=== PATIENT | female | born 1950 | race Caucasian/White ===

== ENCOUNTER → 2017-02-15 | Outpatient (CLI) | payer MEDICARE ==
--- NOTE | 2017-02-18 09:55 | MM ---
Reason for exam: screening (asymptomatic). Baseline mammogram. History: Patient is postmenopausal. Excisional biopsy of the right breast. Physical Findings: Nurse did not find any significant physical abnormalities on exam. MG Screening Mammo w CAD Bilateral CC and MLO view(s) were taken. No prior studies available for comparison. The breast tissue is heterogeneously dense. This may lower the sensitivity of mammography. A few asymmetric densities on the left breast probably represent prominent islands of fibroglandular tissue. As no priors are available for comparison, a 6 month follow up is recommended. These results were verbally communicated with the patient and result sheet given to the patient on 02/15/17. ASSESSMENT: Probably benign, BI-RAD 3 RECOMMENDATION: Follow-up diagnostic mammogram of the left breast in 6 months.
== END ==
LOC: RADMAMWWP 13:37
PROVIDERS: ATTEND Family Medicine
DX: Z12.31 Encounter for screening mammogram for malignant neoplasm of breast (principal)

== ENCOUNTER → 2018-06-27 | Outpatient (CLI) | payer MEDICARE ==
--- NOTE | 2018-06-27 11:50 | XR ---
EXAMINATION TYPE: XR foot complete LT DATE OF EXAM: Pain COMPARISON: NONE HISTORY: Pain TECHNIQUE: Three views are submitted. FINDINGS: The osseous structures are intact. There is no acute fracture or dislocation. Arthropathy of the f irst MTP joint. Tiny bony density along the margin of the cuboid bone. Large plantar calcaneal spur.. IMPRESSION: 1. Tiny bony density along the lateral margin of the cuboid could be related to a tiny avulsion fract ure correlate with point tenderness
== END | disposition home or self-care (01) ==
LOC: RADXRYALE 11:00
PROVIDERS: ATTEND Family Medicine
DX: M85.872 Other specified disorders of bone density and structure, left ankle and foot (principal)

== ENCOUNTER → 2018-08-18 | Outpatient (CLI) | payer MEDICARE ==
--- NOTE | 2018-08-18 16:45 | XR ---
EXAMINATION TYPE: XR abdomen 2V DATE OF EXAM: 08/18/2018 COMPARISON: NONE HISTORY: Pain TECHNIQUE: 3 views FINDINGS: Supine and upright views were obtained. Bowel gas pattern is normal. There is no sign of in testinal obstruction or pneumoperitoneum. Fecal pattern is normal. There are no pathologic calcificat ions over the kidneys. Lung bases are clear. There is no sign of a mass. IMPRESSION: Nonacute abdomen.
== END | disposition home or self-care (01) ==
LOC: RADXRYALE 16:12
PROVIDERS: ATTEND Physician Assistant Medical
DX: R10.9 Unspecified abdominal pain (principal); R19.7 Diarrhea, unspecified
CPT/HCPCS: 74019

== ENCOUNTER 2018-12-30 09:43 | Observation (INO) | payer MEDICARE ==
[2018-12-30] MEDS ORDERED: ASPIRIN 81 MG PO STA (10:11)
[2018-12-30] MEDS ORDERED: NITROGLYCERIN OINT 1 INCH/GM PACKET TOPICAL STA (10:11)
--- NOTE | 2018-12-30 10:13 | ED ---
General Adult HPI - General Chief complaint: Chest Pain Stated complaint: chest pain Time Seen by Provider: 12/30/18 09:45 Source: patient, RN notes reviewed Mode of arrival: wheelchair Limitations: no limitations - History of Present Illness Initial comments: This is a 68-year-old female presents emergency Complaining of chest pain and difficulty breathing after stress test. Patient states she had a stress test because she's been experiencing intermittent chest pain or shortness of breath with exertion. Patient states after the stress test today she had central chest pain did last for a long but she was also short of breath. Patient states they sat her down after the stress test but she continued to have chest pain. Patient denies any chest pain currently. Patient denies any lightheadedness dizziness or near syncopal episode. Patient denies any palpations. Patient denies any abdominal pain patient denies nausea vomiting diarrhea. Patient denies any swelling to the legs or calf tenderness. - Related Data Allergies Allergy/AdvReac Type Severity Reaction Status Date / Time Penicillins Allergy Hallucinati Verified 12/30/18 09:51 ons propoxyphene Allergy Unknown Verified 12/30/18 09:51 [From [facility]] Review of Systems ROS Statement: Those systems with pertinent positive or pertinent negative responses have been documented in the HPI. ROS Other: All systems not noted in ROS Statement are negative. Past Medical History Past Medical History: Chest Pain / Angina, Hyperlipidemia, Hypertension History of Any Multi-Drug Resistant Organisms: None Reported Past Surgical History: Cholecystectomy, Hysterectomy Additional Past Surgical History / Comment(s): 2 right knee sx, Past Psychological History: Anxiety, Depression Smoking Status: Former smoker Past Alcohol Use History: None Reported Past Drug Use History: None Reported General Exam - General Exam Comments Initial Comments: GENERAL: Patient is well-developed and well-nourished. Patient is nontoxic and well- hydrated and is in mild distress. ENT: Neck is soft and supple. No significant lymphadenopathy is noted. Oropharynx is clear. Moist mucous membranes. Neck has full range of motion without eliciting any pain. EYES: The sclera were anicteric and conjunctiva were pink and moist. Extraocular movements were intact and pupils were equal round and reactive to light. Eyelids were unremarkable. PULMONARY: Unlabored respirations. Good breath sounds bilaterally. Patient's extremities. CARDIOVASCULAR: There is a regular rate and rhythm without any murmurs gallops or rubs. ABDOMEN: Soft and nontender with normal bowel sounds. No palpable organomegaly was noted. There is no palpable pulsatile mass. SKIN: Skin is clear with no lesions or rashes and otherwise unremarkable. NEUROLOGIC: Patient is alert and oriented x3. Cranial nerves II through XII are grossly intact. Motor and sensory are also intact. Normal speech, volume and content. Symmetrical smile. MUSCULOSKELETAL: Normal extremities with adequate strength and full range of motion. No lower extremity swelling or edema. No calf tenderness. LYMPHATICS: No significant lymphadenopathy is noted PSYCHIATRIC: Normal psychiatric evaluation. Normal interpersonal interactions appears functionally intact in deals appropriately with others. No signs of depression. No signs of anxiety. Limitations: no limitations Course Vital Signs 12/30/18 09:44 Temperature 98.2 F Pulse Rate 96 Respiratory 22 Rate Blood Pressure 129/87 O2 Sat by Pulse 94 L Oximetry Medical Decision Making - Medical Decision Making EKG shows normal sinus rhythm at 90 bpm CA interval is 128 QRS is 60 QT interval 326 QTC is 398. Patient's EKG shows no ST segment elevation or depression or T wave abnormalities are noted. Chest x-ray shows no acute abnormality. Patient was chest pain-free at this time. I spoke with Dr. Cervantes he agreed to admit the patient admitted the patient wrote admitting orders. I started the patient on heparin and continue the heparin on the floor as well as aspirin and Nitropaste. I consult cardiology I wrote admitting orders. - Lab Data Result diagrams: 12/30/18 10:17 12/30/18 10:17 Lab Results 12/30/18 12/30/18 12/30/18 Range/Units 10:17 10:17 10:17 WBC 6.7 (3.8-10.6) k/uL RBC 5.27 (3.80-5.40) m/uL Hgb 15.8 (11.4-16.0) gm/dL Hct 47.7 H (34.0-46.0) % MCV 90.6 (80.0-100.0) fL MCH 30.0 (25.0-35.0) pg MCHC 33.1 (31.0-37.0) g/dL RDW 12.8 (11.5-15.5) % Plt Count 393 (150-450) k/uL Neutrophils % 57 % Lymphocytes % 25 % Monocytes % 6 % Eosinophils % 7 % Basophils % 1 % Neutrophils # 3.8 (1.3-7.7) k/uL Lymphocytes # 1.7 (1.0-4.8) k/uL Monocytes # 0.4 (0-1.0) k/uL Eosinophils # 0.5 (0-0.7) k/uL Basophils # 0.1 (0-0.2) k/uL PT (9.0-12.0) sec INR (<1.2) APTT (22.0-30.0) sec Sodium 137 (137-145) mmol/L Potassium 5.3 H (3.5-5.1) mmol/L Chloride 103 (98-107) mmol/L Carbon Dioxide 26 (22-30) mmol/L Anion Gap 8 mmol/L BUN 20 H (7-17) mg/dL Creatinine 0.85 (0.52-1.04) mg/dL Est GFR (CKD-EPI)AfAm 82 (>60 ml/min/1.73 sqM) Est GFR (CKD-EPI)NonAf 71 (>60 ml/min/1.73 sqM) Glucose 112 H (74-99) mg/dL Calcium 10.3 H (8.4-10.2) mg/dL Magnesium 2.0 (1.6-2.3) mg/dL Total Bilirubin 0.5 (0.2-1.3) mg/dL AST 32 (14-36) U/L ALT 57 H (9-52) U/L Alkaline Phosphatase 78 (38-126) U/L Troponin I (0.000-0.034) ng/mL NT-Pro-B Natriuret Pep 29 pg/mL Total Protein 7.5 (6.3-8.2) g/dL Albumin 4.8 (3.5-5.0) g/dL 12/30/18 12/30/18 Range/Units 10:17 10:17 WBC (3.8-10.6) k/uL RBC (3.80-5.40) m/uL Hgb (11.4-16.0) gm/dL Hct (34.0-46.0) % MCV (80.0-100.0) fL MCH (25.0-35.0) pg MCHC (31.0-37.0) g/dL RDW (11.5-15.5) % Plt Count (150-450) k/uL Neutrophils % % Lymphocytes % % Monocytes % % Eosinophils % % Basophils % % Neutrophils # (1.3-7.7) k/uL Lymphocytes # (1.0-4.8) k/uL Monocytes # (0-1.0) k/uL Eosinophils # (0-0.7) k/uL Basophils # (0-0.2) k/uL PT 9.4 (9.0-12.0) sec INR 0.8 (<1.2) APTT 26.4 (22.0-30.0) sec Sodium (137-145) mmol/L Potassium (3.5-5.1) mmol/L Chloride (98-107) mmol/L Carbon Dioxide (22-30) mmol/L Anion Gap mmol/L BUN (7-17) mg/dL Creatinine (0.52-1.04) mg/dL Est GFR (CKD-EPI)AfAm (>60 ml/min/1.73 sqM) Est GFR (CKD-EPI)NonAf (>60 ml/min/1.73 sqM) Glucose (74-99) mg/dL Calcium (8.4-10.2) mg/dL Magnesium (1.6-2.3) mg/dL Total Bilirubin (0.2-1.3) mg/dL AST (14-36) U/L ALT (9-52) U/L Alkaline Phosphatase (38-126) U/L Troponin I <0.012 (0.000-0.034) ng/mL NT-Pro-B Natriuret Pep pg/mL Total Protein (6.3-8.2) g/dL Albumin (3.5-5.0) g/dL Critical Care Time Critical Care Time: Yes Total Critical Care Time: 35 Disposition Clinical Impression: Unstable angina pectoris Disposition: ADMITTED IP TO THIS HOSP Referrals: Kvng Aquion DO [Primary Care Provider] - 1-2 days Time of Disposition: 11:33
[2018-12-30 10:32] LABS: Basophils # (A) 0.1 k/uL (0-0.2); Basophils % (A) 1 %; Eosinophils # (A) 0.5 k/uL (0-0.7); Eosinophils % (A) 7 %; HCT 47.7 % (34.0-46.0); HGB 15.8 gm/dL (11.4-16.0); Lymphocytes # (A) 1.7 k/uL (1.0-4.8); Lymphocytes % (A) 25 %; MCHC 33.1 g/dL (31.0-37.0); MCV 90.6 fL (80.0-100.0); Monocytes # (A) 0.4 k/uL (0-1.0); Monocytes % (A) 6 %; Neutrophils # (A) 3.8 k/uL (1.3-7.7); Neutrophils % (A) 57 %; Platelet Count 393 k/uL (150-450); RBC 5.27 m/uL (3.80-5.40); RDW 12.8 % (11.5-15.5); WBC 6.7 k/uL (3.8-10.6)
[2018-12-30 10:42] LABS: Albumin 4.8 g/dL (3.5-5.0); Calcium 10.3 mg/dL (8.4-10.2); Potassium 5.3 mmol/L (3.5-5.1); Total Bilirubin 0.5 mg/dL (0.2-1.3); Total Protein 7.5 g/dL (6.3-8.2)
--- NOTE | 2018-12-30 10:50 | XR ---
EXAMINATION TYPE: XR chest 2V DATE OF EXAM: 12/30/2018 COMPARISON: NONE HISTORY: History of asthma with chest pain and shortness of breath with exertion. TECHNIQUE: Frontal and lateral views of the chest are obtained. FINDINGS: Underlying emphysematous changes felt present on lateral view with increased retrosternal a irspace and flattening of hemidiaphragms There is no focal air space opacity, pleural effusion, or pn eumothorax seen. The cardiac silhouette size is within normal limits. The osseous structures are s omewhat demineralized. Horizontal subcutaneous cecilio overlie the epigastric region anteriorly. IMPRESSION: Suspect chronic emphysematous change without acute pulmonary process.
[2018-12-30 10:56] LABS: INR 0.8 (<1.2)
[2018-12-30 10:57] LABS: Partial Thromboplastin Time 26.4 sec (22.0-30.0); Prothrombin Time 9.4 sec (9.0-12.0)
[2018-12-30] MEDS ORDERED: HEPARIN SODIUM,PORCINE 5,000 UNIT/ML 1 ML VIAL IV ONE (11:34)
[2018-12-30] MEDS ORDERED: NITROGLYCERIN SL TABS 0.4 MG TAB SUBLINGUAL PRN (11:37)
[2018-12-30] MEDS ORDERED: IPRATROPIUM-ALBUTEROL 3 ML NEB INHALATION STA (11:40)
[2018-12-30] MEDS ORDERED: HEPARIN SOD,PORK IN 0.45% NACL 25,000 UNIT in 0.45% NACL 1 250ML.BAG IV SCH (11:45)
[2018-12-30 12:16] VITALS: BMI 31.5
[2018-12-30 13:27] VITALS: RESP 18; TEMP 98.3
[2018-12-30] MEDS ORDERED: DICYCLOMINE 10 MG CAP PO PRN (13:43)
[2018-12-30] MEDS ORDERED: clonazePAM 0.5 MG TAB PO PRN (13:43)
--- NOTE | 2018-12-30 14:05 | P.CRDCN ---
History of Present Illness History of present illness: This is a pleaseant 68 year old female past medical history significant for dyslipidemia, asthma and former nicotine dependence. She denies history of coronary artery disease and has never followed with a maintenance plumber for any reason. We have been asked to see her in consultation for chest pain. She initially presented to the hospital this morning for an outpatient stress test. She walked on the treadmill for 4 minutes achieving her target heart rate of 132 bpm. While walking she became dyspneic, nauseated and started wheezing. The stress test revealed no evidence of stress induced ischemia. After the test while being escorted to her car by staff she started feeling acutely dizzy with persistent shortness of breath. She stopped to rest and this seemed to improve. However, once she started walking she again started feeling dizzy but this time she states her chest started feeling tight and like it was caving in. It was decided she would go to the ED for evaluation. Upon arrival there she was given a breathing treatment and started feeling relief of her chest tightness and wheezing. However she continued to feel nauseated and dizzy. She states she has been having diarrhea off an on since October with intermittent nausea and abdominal discomfort that is currently being worked up by her PCP. EKG reveals sinus mechanism with poor R-wave progression. No acute ST or T-wave abnormalities. Chest xray shows emphysematous changes with no acute process or overt heart f ailure. Laboratory data reviewed, WBC 6.7, hgb 15.8, plt 393, sodium 137, potassium 5.3, creatinine 0.85, ALT 57, magnesium 2.0, cardiac enzymes negative x1, NTproBNP 29. Current cardiac medications include pravastatin 20 mg daily. At the time of my exam: CONSTITUTIONAL: Denies fever. Denies chills. EYES: Denies blurred vision. Denies vision changes. Denies eye pain. EARS, NOSE, MOUTH & THROAT: Denies headache. Denies sore throat. Denies ear pain. CARDIOVASCULAR: Denies chest pain. Denies shortness of breath. Denies orthopnea. Denies PND. Denies palpitations. RESPIRATORY: Denies cough. GASTROINTESTINAL: Denies abdominal pain. Denies diarrhea. Denies constipation. Denies nausea. Denies vomiting. MUSCULOSKELETAL: Denies myalgias. INTEGUMENTARY: Denies pruitis. Denies rash. NEUROLOGIC: Denies numbness. Denies tingling. Denies weakness. PSYCHIATRIC: Denies anxiety. Denies depression. ENDOCRINE: Denies fatigue. Denies weight change. Denies polydipsia. Denies polyurina. GENITOURINARY: Denies burning, hematuria or urgency with micturation. HEMATOLOGIC: Denies history of anemia. Denies bleeding. Blood pressure 129/87 heart rate 96 afebrile maintaining oxygen saturation on room air GENERAL: This is a 68-year-old female in no apparent distress at the time of my examination. HEENT: Head is atraumatic, normocephalic. Pupils are equal, round. Sclerae anicteric. Conjunctivae are clear. Mucous membranes of the mouth are moist. Neck is supple. There is no jugular venous distention. No carotid bruit is heard. LUNGS: Faint expiratory wheezes noted in the bronchial region, no rales or rhonchi. No chest wall tenderness is noted on palpation or with deep breathing. HEART: Regular rate and rhythm with faint systolic ejection type murmur at the base, no rub or gallops. S1 and S2 heard. ABDOMEN: Soft, nontender. Bowel sounds are heard. No organomegaly noted. EXTREMITIES: No evidence of peripheral edema and no calf tenderness noted. VASCULAR: Radial and dorsalis pedis pulses palpated, no evidence of clubbing. NEUROLOGIC: Patient is awake, alert and oriented x3. ASSESSMENT Chest pain, atypical for angina associated with exertional shortness of breath and wheezing after stress test. Suspect may be related to over exertion and underlying COPD Asthma Dyslipidemia Significant history of long-term nicotine dependence, quit 2 months ago PLAN The patient may eat lunch. Continue to obtain serial cardiac enzymes to rule out an acute coronary event. Obtain 2-D echocardiogram and Doppler study to assess cardiac structure and function. She underwent a stress test earlier today that was negative for stress induced ischemia. Increase activity. Once an acute event has been ruled out she may be able to be discharged home if she remains hemodynamically stable. Follow up in the office with Dr. Laguna in 2 weeks. Thank you kindly for this consultation. Nurse Practitioner note has been reviewed, I agree with a documented findings and plan of care. Patient was seen and examined. Past Medical History Past Medical History: Asthma, Chest Pain / Angina, Hyperlipidemia, Hypertension, Pneumonia Additional Past Medical History / Comment(s): Pt states she has been having problems with severe diarrhea since October 2018 and her PCP is sending her for a cat scan which is scheduled to be done soon, past colon polyps, recent cologard done and was negative, small hemorroid, arhtritis in back and hands. History of Any Multi-Drug Resistant Organisms: None Reported Past Surgical History: Cholecystectomy, Hysterectomy Additional Past Surgical History / Comment(s): 2 right knee sx-ACL repair and meniscus surgery, colonoscopy 15-20 yrs ago. Past Anesthesia/Blood Transfusion Reactions: No Reported Reaction Smoking Status: Former smoker - Past Family History Mother Additional Family Medical History / Comment(s): Mother was an alcoholic Father Family Medical History: Congestive Heart Failure (CHF), Myocardial Infarction (SC) Additional Family Medical History / Comment(s): Father had a massive SC at the age of 78yrs. He of CHF at the age of 91 yrs. Medications and Allergies Home Medications Medication Instructions Recorded Confirmed Type Albuterol Nebulized [Ventolin 2.5 mg INHALATION RT-Q4H 12/30/18 12/30/18 History Nebulized] Albuterol Sulfate [Proair Hfa] 2 puff INHALATION RT-Q4H 12/30/18 12/30/18 History Celecoxib [CeleBREX] 200 mg PO DAILY 12/30/18 12/30/18 History Cholecalciferol [Vitamin D3] 1,000 unit PO DAILY 12/30/18 12/30/18 History Diclofenac Sodium Gel [Voltaren 1 gm TOPICAL QID 12/30/18 12/30/18 History Gel] Dicyclomine HCl 10 - 20 mg PO TID 12/30/18 12/30/18 History Ipratropium Nebulized [Atrovent 0.5 mg INHALATION RT-Q4H 12/30/18 12/30/18 History Nebulized 0.2 MG/ML] L.acidoph,Paracasei, B.lactis 1 cap PO DAILY 12/30/18 12/30/18 History [Probiotic] Losartan Potassium [Cozaar] 25 mg PO DAILY 12/30/18 12/30/18 History Montelukast Sodium [Singulair] 10 mg PO HS 12/30/18 12/30/18 History Pravastatin Sodium [Pravachol] 20 mg PO HS 12/30/18 12/30/18 History Vitamin B Complex 1 cap PO DAILY 12/30/18 12/30/18 History clonazePAM [KlonoPIN] 0.5 mg PO BID PRN 12/30/18 12/30/18 History tiZANidine [Zanaflex] 8 mg PO HS 12/30/18 12/30/18 History Allergies Allergy/AdvReac Type Severity Reaction Status Date / Time morphine Allergy Rash/Hives Verified 12/30/18 13:24 Penicillins Allergy Hallucinati Verified 12/30/18 12:03 ons propoxyphene Allergy Unknown Verified 12/30/18 12:03 [From [facility]] Physical Exam Vitals: Vital Signs Temp Pulse Pulse Resp BP BP Pulse Ox 12/30/18 13:28 102 H 18 12/30/18 12:50 98.3 F 102 H 18 121/77 92 L 12/30/18 12:30 98 20 108/83 95 12/30/18 12:13 100 12/30/18 12:01 98 12/30/18 12:00 101 H 14 126/75 95 12/30/18 11:30 98 15 135/87 95 12/30/18 11:00 89 15 138/83 94 L 12/30/18 10:30 84 18 139/86 96 12/30/18 10:00 86 18 151/88 96 12/30/18 09:57 151/88 95 12/30/18 09:44 98.2 F 96 22 129/87 94 L Intake and Output 12/29/18 12/30/18 12/30/18 22:59 06:59 14:59 Other: Voiding Method Toilet Weight 75.75 kg Results 12/30/18 10:17 12/30/18 10:17 Cardiac Enzymes 12/30/18 12/30/18 Range/Units 10:17 10:17 AST 32 (14-36) U/L Troponin I <0.012 (0.000-0.034) ng/mL Coagulation 12/30/18 Range/Units 10:17 PT 9.4 (9.0-12.0) sec APTT 26.4 (22.0-30.0) sec CBC 12/30/18 Range/Units 10:17 WBC 6.7 (3.8-10.6) k/uL RBC 5.27 (3.80-5.40) m/uL Hgb 15.8 (11.4-16.0) gm/dL Hct 47.7 H (34.0-46.0) % Plt Count 393 (150-450) k/uL Comprehensive Metabolic Panel 12/30/18 Range/Units 10:17 Sodium 137 (137-145) mmol/L Potassium 5.3 H (3.5-5.1) mmol/L Chloride 103 (98-107) mmol/L Carbon Dioxide 26 (22-30) mmol/L BUN 20 H (7-17) mg/dL Creatinine 0.85 (0.52-1.04) mg/dL Glucose 112 H (74-99) mg/dL Calcium 10.3 H (8.4-10.2) mg/dL AST 32 (14-36) U/L ALT 57 H (9-52) U/L Alkaline Phosphatase 78 (38-126) U/L Total Protein 7.5 (6.3-8.2) g/dL Albumin 4.8 (3.5-5.0) g/dL Current Medications Generic Name Dose Route Start Last Admin Trade Name Freq PRN Reason Stop Dose Admin Aspirin 325 mg 12/31/18 09:00 Aspirin PO DAILY [facility] Heparin Sodium/Sodium Chloride 250 mls @ 9.09 mls/hr 12/30/18 11:45 12/30/18 12:27 25,000 unit/ Sodium Chloride IV 12 units/kg/hr .Q24H HOLDEN 9.09 mls/hr Administration Protocol 12 UNITS/KG/HR Nitroglycerin 1 inch 12/30/18 18:00 Nitro-Bid Oint TOPICAL Q6HR [facility] Nitroglycerin 0.4 mg 12/30/18 11:37 Nitrostat SUBLINGUAL Q5M PRN Chest Pain Intake and Output 12/29/18 12/30/18 12/30/18 22:59 06:59 14:59 Other: Voiding Method Toilet Weight 75.75 kg Patient Weight 12/31/18 06:59 Weight 75.75 kg 12/30/18 10:17 12/30/18 10:17
[2018-12-30 14:27] LABS: Cholesterol 250 mg/dL (<200); HDL Cholesterol 92 mg/dL (40-60); LDL Cholesterol,Calculated 127 mg/dL (0-99); Triglycerides 153 mg/dL (<150)
--- NOTE | 2018-12-30 15:03 | P.DS ---
Providers Date of admission: 12/30/18 11:38 Attending physician: Ceasar Cervantes Consults: 12/30/18 11:37 Consult Physician Urgent Consulting Provider: [facility] Consult Reason/Comments: Unstable angina Do you want consulting provider notified?: Yes Primary care physician: Kvng Aquino [facility] Course: Please refer to my HPI Plan - Discharge Summary Discharge Rx Participant: No New Discharge Prescriptions: New Atorvastatin [Lipitor] 20 mg PO DAILY #30 tablet Discontinued Losartan Potassium [Cozaar] 25 mg PO DAILY Diclofenac Sodium Gel [Voltaren Gel] 1 gm TOPICAL QID No Action Cholecalciferol [Vitamin D3] 1,000 unit PO DAILY clonazePAM [KlonoPIN] 0.5 mg PO BID PRN PRN Reason: Anxiety Vitamin B Complex 1 cap PO DAILY L.acidoph,Paracasei, B.lactis [Probiotic] 1 cap PO DAILY tiZANidine [Zanaflex] 8 mg PO HS Pravastatin Sodium [Pravachol] 20 mg PO HS Montelukast Sodium [Singulair] 10 mg PO HS Celecoxib [CeleBREX] 200 mg PO DAILY Dicyclomine HCl 10 - 20 mg PO TID Albuterol Nebulized [Ventolin Nebulized] 2.5 mg INHALATION RT-Q4H Ipratropium Nebulized [Atrovent Nebulized 0.2 MG/ML] 0.5 mg INHALATION RT-Q4H Albuterol Sulfate [Proair Hfa] 2 puff INHALATION RT-Q4H Discharge Medication List Albuterol Nebulized [Ventolin Nebulized] 2.5 mg INHALATION RT-Q4H 12/30/18 [ History] Albuterol Sulfate [Proair Hfa] 2 puff INHALATION RT-Q4H 12/30/18 [History] Atorvastatin [Lipitor] 20 mg PO DAILY #30 tablet 12/30/18 [Rx] Celecoxib [CeleBREX] 200 mg PO DAILY 12/30/18 [History] Cholecalciferol [Vitamin D3] 1,000 unit PO DAILY 12/30/18 [History] Dicyclomine HCl 10 - 20 mg PO TID 12/30/18 [History] Ipratropium Nebulized [Atrovent Nebulized 0.2 MG/ML] 0.5 mg INHALATION RT-Q4H [History] L.acidoph,Paracasei, B.lactis [Probiotic] 1 cap PO DAILY 12/30/18 [History] Montelukast Sodium [Singulair] 10 mg PO HS 12/30/18 [History] Pravastatin Sodium [Pravachol] 20 mg PO HS 12/30/18 [History] Vitamin B Complex 1 cap PO DAILY 12/30/18 [History] clonazePAM [KlonoPIN] 0.5 mg PO BID PRN 12/30/18 [History] tiZANidine [Zanaflex] 8 mg PO HS 12/30/18 [History] Follow up Appointment(s)/Referral(s): Christopher Laguna MD [STAFF PHYSICIAN] - 01/15/19 3:45 pm Kvng Aquino DO [Primary Care Provider] - 3 Days
--- NOTE | 2018-12-30 15:03 | P.HPIM ---
History of Present Illness Patient was a 68-year-old female came in with compensative chest pain was started as today when she was undergoing stress test patient was undergoing exercise stress test after which patient was started wheezing and the started having chest pain under the left breast area sharp in nature 58-6/10 in severity nonradiating and associated some lightheadedness denied any diaphoresis associated with that patient baseline respiratory status is poor has short of breath with the simple exertion. Patient denied any fever chills nausea vomiting cough chest x-ray did not show pneumonic process. Patient doesn 't have any leukocytosis patient was complaining of pleuritic pain not related to food. Cardiology evaluated the patient has stress test that was done today is negative for any inducible ischemia in the recommending another troponin if that is negative patient is cleared from cardiology perspective. I'll order a d -dimer to rule out any pulmonary embolism patient has reproducible chest pain appears to be musculoskeletal in nature. Patient's serum potassium is 5.2 because of which I will discontinue losartan mildly elevated LDL for which patient will be day discharged on statin. D-dimer and troponin are negative patient will be discharged today. I cannot completely rule out the gastroesophageal reflux disease because of which I'll discharged on 14 days of Prilosec empirically patient can resume her Celebrex but not diclofenac. Review of Systems REVIEW OF SYSTEMS: CONSTITUTIONAL: No fever, no malaise, no fatigue. HEENT: No recent visual problems or hearing problems. Denied any sore throat. CARDIOVASCULAR: No orthopnea, PND, no palpitations, no syncope. PULMONARY: No shortness of breath, no cough, no hemoptysis. GASTROINTESTINAL: No diarrhea, no nausea, no vomiting, no abdominal pain. NEUROLOGICAL: No headaches, no weakness, no numbness. HEMATOLOGICAL: Denies any bleeding or petechiae. GENITOURINARY: Denies any burning micturition, frequency, or urgency. MUSCULOSKELETAL/RHEUMATOLOGICAL: Denies any joint pain, swelling, or any muscle pain. ENDOCRINE: Denies any polyuria or polydipsia. The rest of the 14-point review of systems is negative. Past Medical History Past Medical History: Asthma, Chest Pain / Angina, Hyperlipidemia, Hypertension , Pneumonia Additional Past Medical History / Comment(s): Pt states she has been having problems with severe diarrhea since October 2018 and her PCP is sending her for a cat scan which is scheduled to be done soon, past colon polyps, recent cologard done and was negative, small hemorroid, arhtritis in back and hands. History of Any Multi-Drug Resistant Organisms: None Reported Past Surgical History: Cholecystectomy, Hysterectomy Additional Past Surgical History / Comment(s): 2 right knee sx-ACL repair and meniscus surgery, colonoscopy 15-20 yrs ago. Past Anesthesia/Blood Transfusion Reactions: No Reported Reaction Smoking Status: Former smoker - Past Family History Mother Additional Family Medical History / Comment(s): Mother was an alcoholic Father Family Medical History: Congestive Heart Failure (CHF), Myocardial Infarction ( KS) Additional Family Medical History / Comment(s): Father had a massive KS at the age of 78yrs. He of CHF at the age of 91 yrs. Medications and Allergies Home Medications Medication Instructions Recorded Confirmed Type Albuterol Nebulized [Ventolin 2.5 mg INHALATION RT-Q4H 12/30/18 12/30/18 History Nebulized] Albuterol Sulfate [Proair Hfa] 2 puff INHALATION RT-Q4H 12/30/18 12/30/18 History Atorvastatin [Lipitor] 20 mg PO DAILY #30 tablet 12/30/18 Rx Celecoxib [CeleBREX] 200 mg PO DAILY 12/30/18 12/30/18 History Cholecalciferol [Vitamin D3] 1,000 unit PO DAILY 12/30/18 12/30/18 History Dicyclomine HCl 10 - 20 mg PO TID 12/30/18 12/30/18 History Ipratropium Nebulized [Atrovent 0.5 mg INHALATION RT-Q4H 12/30/18 12/30/18 History Nebulized 0.2 MG/ML] L.acidoph,Paracasei, B.lactis 1 cap PO DAILY 12/30/18 12/30/18 History [Probiotic] Montelukast Sodium [Singulair] 10 mg PO HS 12/30/18 12/30/18 History Pravastatin Sodium [Pravachol] 20 mg PO HS 12/30/18 12/30/18 History Vitamin B Complex 1 cap PO DAILY 12/30/18 12/30/18 History clonazePAM [KlonoPIN] 0.5 mg PO BID PRN 12/30/18 12/30/18 History tiZANidine [Zanaflex] 8 mg PO HS 12/30/18 12/30/18 History Allergies Allergy/AdvReac Type Severity Reaction Status Date / Time morphine Allergy Rash/Hives Verified 12/30/18 13:24 Penicillins Allergy Hallucinati Verified 12/30/18 12:03 ons propoxyphene Allergy Unknown Verified 12/30/18 12:03 [From [facility]] Physical Exam Vitals: Vital Signs Temp Pulse Pulse Resp BP BP Pulse Ox 12/30/18 13:28 102 H 18 12/30/18 12:50 98.3 F 102 H 18 121/77 92 L 12/30/18 12:30 98 20 108/83 95 12/30/18 12:13 100 12/30/18 12:01 98 12/30/18 12:00 101 H 14 126/75 95 12/30/18 11:30 98 15 135/87 95 12/30/18 11:00 89 15 138/83 94 L 12/30/18 10:30 84 18 139/86 96 12/30/18 10:00 86 18 151/88 96 12/30/18 09:57 151/88 95 12/30/18 09:44 98.2 F 96 22 129/87 94 L Intake and Output 12/29/18 12/30/18 12/30/18 22:59 06:59 14:59 Intake Total 200 Balance 200 Intake: Oral 200 Other: Voiding Method Toilet Weight 75.75 kg PHYSICAL EXAMINATION: GENERAL: The patient is alert and oriented x3, not in any acute distress. Well developed, well nourished. HEENT: Pupils are round and equally reacting to light. EOMI. No scleral icterus. No conjunctival pallor. Normocephalic, atraumatic. No pharyngeal erythema. No thyromegaly. CARDIOVASCULAR: S1 and S2 present. No murmurs, rubs, or gallops. PULMONARY: Chest is clear to auscultation, no wheezing or crackles. Wheezing resolved now ABDOMEN: Soft, nontender, nondistended, normoactive bowel sounds. No palpable organomegaly. MUSCULOSKELETAL: No joint swelling or deformity. EXTREMITIES: No cyanosis, clubbing, or pedal edema. NEUROLOGICAL: Gross neurological examination did not reveal any focal deficits. SKIN: No rashes. Results CBC & Chem 7: 12/30/18 10:17 12/30/18 10:17 Labs: Abnormal Lab Results - Last 24 Hours (Table) 12/30/18 12/30/18 12/30/18 Range/Units 10:17 10:17 10:17 Hct 47.7 H (34.0-46.0) % Potassium 5.3 H (3.5-5.1) mmol/L BUN 20 H (7-17) mg/dL Glucose 112 H (74-99) mg/dL Calcium 10.3 H (8.4-10.2) mg/dL ALT 57 H (9-52) U/L Triglycerides 153 H (<150) mg/dL Cholesterol 250 H (<200) mg/dL LDL Cholesterol, Calc 127 H (0-99) mg/dL HDL Cholesterol 92 H (40-60) mg/dL Thrombosis Risk Factor Assmnt - Choose All That Apply Any of the Below Risk Factors Present?: Yes Each Factor Represents 1 point: Obesity (BMI >25) Other Risk Factors: Yes Each Risk Factor Represents 2 Points: Age 61-74 years Other congenital or acquired thrombophilia - If yes, enter type in comment: No Thrombosis Risk Factor Assessment Total Risk Factor Score: 3 Thrombosis Risk Factor Assessment Level: Moderate Risk Assessment and Plan Plan: -Chest pain appears to be atypical musculoskeletal in nature because of some pleuritic competent will rule out pulmonary embolism with a d-dimer. If that is negative patient will be discharged today after second set of troponin that is negative patient will follow-up with her primary get patient is -COPD/emphysema not in acute exacerbation: Quit smoking 2 months ago -Hypertension -Hyperlipidemia --Hyperkalemia secondary losartan which were discontinued -Depression Plan and management as mentioned in the HPI itself
[2018-12-30 15:36] VITALS: BP 113/71
[2018-12-30] MEDS ORDERED: ALBUTEROL INHALER 60 PUFF/8 GM INHALER INHALATION SCH (16:00)
[2018-12-30] MEDS ORDERED: ALBUTEROL NEBULIZED 2.5 MG/3 ML INHALATION SCH (16:00)
[2018-12-30] MEDS ORDERED: IPRATROPIUM 0.5 MG/2.5 ML NEBU INHALATION SCH (16:00)
[2018-12-30 17:35] VITALS: PULSE 92
[2018-12-30] MEDS ORDERED: NITROGLYCERIN OINT 1 INCH/GM PACKET TOPICAL SCH (18:00)
[2018-12-30] MEDS ORDERED: PRAVASTATIN SODIUM 20 MG TAB PO SCH (21:00)
[2018-12-30] MEDS ORDERED: PRAVASTATIN SODIUM 40 MG TAB PO SCH (21:00)
[2018-12-31] MEDS ORDERED: ASPIRIN 325 MG TAB PO SCH (09:00)
[2018-12-31] MEDS ORDERED: MELOXICAM 7.5 MG TAB PO SCH (09:00)
[2018-12-31] MEDS ORDERED: LOSARTAN 25 MG TAB PO SCH (09:00)
[2018-12-31] MEDS ORDERED: ASPIRIN 81 MG PO SCH (09:00)
--- NOTE | 2018-12-31 18:08 | ECHOF ---
Referral Reason:cp MEASUREMENTS -------- HEIGHT: 152.4 cm WEIGHT: 75.7 kg BP: IVSd: 1.2 cm (0.6 - 1.1) LVIDd: 3.4 cm (3.9 - 5.3) LVPWd: 1.4 cm (0.6 - 1.1) IVSs: 1.5 cm LVIDs: 2.4 cm LVPWs: 1.4 cm Ao Diam: 3.1 cm (2.0 - 3.7) AV Cusp: 1.8 cm (1.5 - 2.6) MV EXCURSION: 19.089 mm (> 18.000) MV EF SLOPE: 93 mm/s (70 - 150) EPSS: 0.6 cm MV E Davion: 0.46 m/s MV DecT: 215 ms MV A Davion: 0.78 m/s MV E/A Ratio: 0.58 FINDINGS -------- Sinus rhythm. This was a techncally difficult study with suboptimal views, , Lumason utilized for enhancement of im ages. The left ventricular size is normal. There is mild concentric left ventricular hypertrophy. Overa ll left ventricular systolic function is normal with, an EF between 55 - 60 %. The right ventricle is normal in size. The left atrial size is normal. The right atrial size is normal. 5.0mg OF Lumason UTLIZED: 2 OR MORE WALL SEGMENTS NOT VISUALIZED. The aortic valve was not well visualized. Mild mitral regurgitation is present. No regurgitation noted Unable to estimate RVSP due to inadequate TR jet spectral doppler profile. The pulmonic valve was not well visualized. The aortic root size is normal. There is no pericardial effusion. CONCLUSIONS -------- 1. This was a techncally difficult study with suboptimal views, , Lumason utilized for enhancement of images. 2. The left ventricular size is normal. 3. There is mild concentric left ventricular hypertrophy. 4. Overall left ventricular systolic function is normal with, an EF between 55 - 60 %. 5. The right ventricle is normal in size. 6. The left atrial size is normal. 7. The right atrial size is normal. 8. 5.0mg OF Lumason UTLIZED: 2 OR MORE WALL SEGMENTS NOT VISUALIZED. 9. The aortic valve was not well visualized. 10. Mild mitral regurgitation is present. 11. No regurgitation noted 12. Unable to estimate RVSP due to inadequate TR jet spectral doppler profile. 13. The pulmonic valve was not well visualized. 14. The aortic root size is normal. 15. There is no pericardial effusion. EQUAL OPPORTUNITY OFFICER: Brianda Maciel RDCS
== END 2018-12-30 17:30 | disposition home or self-care (01) ==
LOC: EC 09:43 → 1SOBS 11:38
PROVIDERS: ADMIT Internal Medicine; ATTEND Internal Medicine
DX: R07.89 Other chest pain (principal); J43.9 Emphysema, unspecified; I10 Essential (primary) hypertension; E78.5 Hyperlipidemia, unspecified; E87.5 Hyperkalemia; T46.5X5A Adverse effect of other antihypertensive drugs, initial encounter; J45.909 Unspecified asthma, uncomplicated; R11.0 Nausea; R42 Dizziness and giddiness; M46.90 Unspecified inflammatory spondylopathy, site unspecified; R19.7 Diarrhea, unspecified; E66.9 Obesity, unspecified; Z68.31 Body mass index [BMI] 31.0-31.9, adult; F41.9 Anxiety disorder, unspecified; F32.9 Major depressive disorder, single episode, unspecified; M19.042 Primary osteoarthritis, left hand; M19.041 Primary osteoarthritis, right hand; Z79.899 Other long term (current) drug therapy; Z88.0 Allergy status to penicillin; Z88.5 Allergy status to narcotic agent; Z90.49 Acquired absence of other specified parts of digestive tract; Z90.710 Acquired absence of both cervix and uterus; Z87.01 Personal history of pneumonia (recurrent); Z87.891 Personal history of nicotine dependence; Z86.010 Personal history of colon polyps; Z81.1 Family history of alcohol abuse and dependence; Z82.49 Family history of ischemic heart disease and other diseases of the circulatory system
CPT/HCPCS: 96374; 99291; 36415; 94640; 93005; 85379; 83880; 80061; 80053; 83735; 84484; 85025; 85610; 85730; 71046; G0378; C8929; J1644 ×2; Q9950; 93306

== ENCOUNTER → 2018-12-30 | Outpatient (CLI) | payer MEDICARE ==
--- NOTE | 2018-12-30 11:32 | EST ---
EXERCISE STRESS DATE OF SERVICE: 12/30/2018 AGE: 68 SEX: Female HT: 5'1" WT: 168 pounds PROTOCOL: Kvng STAGE: I DURATION OF EXERCISE: 4 minutes HEART RATE REST: 98 BLOOD PRESSURE REST: 142/102 MAXIMUM HEART RATE ACHIEVED: 132 MAXIMUM BLOOD PRESSURE: 207/93 85% MPHR: 100% MPHR: METS: 5.8 INDICATIONS: Chest pain, hypertension. CLINICAL INFORMATION: Baseline rhythm is a sinus mechanism, rate of 98, normal axis and intervals, poor R progression. Baseline blood pressure 142/102 mmHg. Patient exercised on Kvng protocol for 4 minutes reaching peak rate 132 beats per minute which is equal to 86% maximum predicted heart rate. Peak blood pressure 207/93 mmHg. Test was terminated secondary to fatigue and dyspnea. There was no chest pain. Electrocardiograph monitoring revealed no evidence of diagnostic ischemic ST deviation. CONCLUSION: 1. Poor exercise tolerance with dyspnea on exertion and wheezing. 2. Normal electrocardiographic stress test with no evidence of stress-induced ischemia. MMODL / IJN: [id number] /
== END | disposition home or self-care (01) ==
LOC: RADNMMAIN 08:53
PROVIDERS: ATTEND Family Medicine
DX: R06.00 Dyspnea, unspecified (principal); R06.2 Wheezing; R07.89 Other chest pain; E78.2 Mixed hyperlipidemia; F17.211 Nicotine dependence, cigarettes, in remission; I10 Essential (primary) hypertension
CPT/HCPCS: 93017

== ENCOUNTER → 2019-01-05 | Outpatient (CLI) | payer MEDICARE ==
--- NOTE | 2019-01-05 20:18 | CT ---
EXAMINATION TYPE: CT abdomen pelvis w con DATE OF EXAM: 01/05/2019 COMPARISON: HISTORY: Abdominal pain and diarrhea x [address] DLP: 1150 mGycm Automated exposure control for dose reduction was used. CONTRAST: CT scan of the abdomen pelvis is performed with IV Contrast, patient injected with 100 mL of Isovue M 300. FINDINGS- LUNG BASES- No significant abnormality is appreciated. LIVER/GB-tiny hypodensity involving the inferior margin of the right lobe of the liver measures less than 5 mm and too small to characterize.. PANCREAS- No gross abnormality is seen. SPLEEN- No gross abnormality is seen. ADRENALS- No gross abnormality is seen. KIDNEYS/BLADDER- no hydronephrosis nephrolithiasis or renal mass. BOWEL-bowel gas pattern nonspecific with no obstruction. Changes of diverticulosis involving the sigm oid colon. There is a subsegmental area of wall thickening involving the sigmoid colon may be related to incomplete distention rather than colitis. No focal inflammatory changes. Correlate clinically.. LYMPH NODES- No greater than 1cm abdominal or pelvic lymph nodes areappreciated. OSSEOUS STRUCTURES-severe degenerative disc disease and facet arthropathy L4-L5 and L5-S1 with grade 1 anterolisthesis L5 on S1 and bilateral foraminal encroachment. Findings appear to be secondary to f acet arthropathy with no spondylolysis.. OTHER- atherosclerotic change aorta. No evidence of aneurysm. Appears to be evidence of previous guanakito garth involving the anterior abdominal wall. IMPRESSION- 1. Diverticulosis with wall thickening involving the sigmoid colon. However, this could be related to incomplete distention. No surrounding inflammatory changes correlate clinically to exclude mild coli tis or less likely mild diverticulitis, mucosal lesion
== END | disposition home or self-care (01) ==
LOC: RADCTMAIN 14:53
PROVIDERS: ATTEND Family Medicine
DX: K57.30 Diverticulosis of large intestine without perforation or abscess without bleeding (principal); K21.9 Gastro-esophageal reflux disease without esophagitis
CPT/HCPCS: 74177; 36415; Q9967

== ENCOUNTER → 2019-01-21 | Day surgery (SDC) | payer MEDICARE ==
[2019-01-14 13:21] VITALS: BMI 32.5
[~2019-01-21] MED LIST: ALBUTEROL NEBULIZED 2.5 MG/3 ML INHALATION PRN; ALPRAZolam 0.25 MG TAB PO PRN; ASCORBIC ACID 500 MG TAB PO SCH; ASPIRIN 325 MG TAB PO ONE; ASPIRIN 81 MG PO SCH; ATORVASTATIN 20 MG TAB PO SCH; CELECOXIB 200 MG PO SCH; CHOLECALCIFEROL 1,000 UNIT TAB PO SCH; CYANOCOBALAMIN PO SCH; HEPARIN SODIUM 1,000 UN/ML (10ML VL) IV ONE; HEPARIN SODIUM 1,000 UN/ML (10ML VL) ONE; IOPAMIDOL-370 125ML BTL INJ ONE; IPRATROPIUM-ALBUTEROL 3 ML NEB INHALATION PRN; ISOSORBIDE MONONITRATE ER 30 MG TAB.ER.24H PO SCH; LIDOCAINE 1% INJ 10MG/ML (20 ML MDV) ONE; LIDOCAINE 1% INJ 10MG/ML (20 ML MDV) SQ ONE; LOSARTAN 25 MG TAB PO SCH; MIDAZOLAM 2 MG/2 ML VIAL IVP ONE; MONTELUKAST 10 MG TAB PO SCH; MULTIVITAMIN PO SCH; NITROGLYCERIN SL TABS 0.4 MG TAB SUBLINGUAL PRN; NON-FORMULARY DRUG (L.Acidoph,Paracasei, B.Lactis [Probiotic] 1 CAP) PO SCH; RX INFO: IV CONTRAST WAS GIVEN 1 EACH MISC MISCELLANE PRN; SODIUM CHLORIDE 0.9% 1,000 ML IV ONE; SODIUM CHLORIDE 0.9% 1,000 ML IV SCH; SODIUM CHLORIDE 0.9% 1,000 ML in EMPTY BAG 1 BAG IV ONE; VERAPAMIL 2.5 MG/ML 2 ML AMP ONE; VERAPAMIL SYRINGE (5 MG/10 ML) INTRAARTER ONE; fentaNYL (PF) 50 MCG/ML 2 ML AMP IVP ONE; fentaNYL (PF) 50 MCG/ML 2 ML AMP ONE; tiZANidine 4 MG TAB PO PRN
[2019-01-21 07:05] VITALS: TEMP 98.8
--- NOTE | 2019-01-21 09:12 | CC ---
CARDIAC CATHETERIZATION REPORT Mrs. Nieves is a 68-year-old female with known history of hypertension, hyperlipidemia, history of chronic tobacco use, who has been complaining of chest discomfort. She had recently a regular stress test where she had poor exercise tolerance with no EKG changes, but had chest discomfort. In view of that, recommendation was made regarding cardiac catheterization. The procedure as well as the risks and complication were discussed with the patient who is in full understanding and agreement. PROCEDURE: Patient was brought to cytology laboratory manager in a fasting semi-sedate state after receiving fentanyl and Benadryl and achieving moderate conscious sedated state. Using Xylocaine anesthesia and Seldinger technique, a 6-Irish sheath was introduced in the right radial artery. Selective right and left angiography was performed using 5-Irish 3.5 bend right and left Jeison catheter. Multiple views including hemiaxial views obtained. Following that 5-Irish tight pigtail catheter was introduced left ventricle and a 30-degree UNDERWOOD view of the left ventricle was obtained. Following that, catheter and sheaths were removed. Hemostasis was obtained with deployment of TR band. There was no immediate complication. Patient was returned to her room in stable condition. Of note, the patient received of 4000 units of intravenous heparin as well as intra- arterial verapamil. FINDINGS: LEFT MAIN: This is a short size vessel bifurcating in the left circumflex, left anterior descending artery. Left main coronary artery has no evidence of high-grade stenosis. LEFT ANTERIOR DESCENDING ARTERY: This is a large-sized vessel reaching to the apex with wraparound the apex segment giving rise to 3 small diagonal branches. Left anterior descending artery has a 10% plaque proximally at the takeoff. The rest of the vessel has no high-grade stenosis. LEFT CIRCUMFLEX: This is a large nondominant vessel giving rise to a large obtuse marginal branch. The left circumflex as well as branches have no evidence of obstructive coronary artery disease. RIGHT CORONARY ARTERY: This is a large dominant vessel bifurcating distally PDA, posterolateral segment and branches. The right coronary artery proximally has 10% plaque. The rest of the vessel has no high-grade stenosis. LEFT VENTRICULOGRAM: Left ventriculogram was performed in 30-degree UNDERWOOD view and revealed normal left ventricular sized and systolic function. Ejection fraction 60%. There was no significant mitral regurgitation. HEMODYNAMICS: There was no gradient across the aortic valve. The left ventricular end- diastolic pressure was 10 to 12 mmHg. CONCLUSION: 1. 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 2. Normal left ventricular size and systolic function. RECOMMENDATION: In view of finding anatomy, I recommend continue medical therapy with aggressive coronary risk modifications that have been initiated. Those findings and recommendations were discussed with the patient and her family and they are in full understanding and agreement. Duration of procedure is 13 minutes. SHASHANK / SUMEETN: [id number] /
[2019-01-21 11:36] VITALS: RESP 16
[2019-01-21 12:27] VITALS: BP 120/76; PULSE 71
== END | disposition home or self-care (01) ==
LOC: CATHCVL 06:22
PROVIDERS: ATTEND Internal Medicine Interventional Cardiology
DX: I25.10 Atherosclerotic heart disease of native coronary artery without angina pectoris (principal); I10 Essential (primary) hypertension; Z87.891 Personal history of nicotine dependence; Z82.49 Family history of ischemic heart disease and other diseases of the circulatory system; Z79.899 Other long term (current) drug therapy; Z79.51 Long term (current) use of inhaled steroids; Z79.52 Long term (current) use of systemic steroids; Z88.0 Allergy status to penicillin; E78.2 Mixed hyperlipidemia
CPT/HCPCS: 93458; C1894; C1769; J2250; J2001; J3010; J1644; Q9967

== ENCOUNTER 2019-01-29 11:06 | Day surgery (SDC) | payer MEDICARE ==
[2019-01-27 15:56] VITALS: BMI 32.5
[~2019-01-29 11:06] MED LIST changes: -ALBUTEROL NEBULIZED 2.5 MG/3 ML INHALATION PRN; -ALPRAZolam 0.25 MG TAB PO PRN; -ASCORBIC ACID 500 MG TAB PO SCH; -ASPIRIN 325 MG TAB PO ONE; -ASPIRIN 81 MG PO SCH; -ATORVASTATIN 20 MG TAB PO SCH; -CELECOXIB 200 MG PO SCH; -CHOLECALCIFEROL 1,000 UNIT TAB PO SCH; -CYANOCOBALAMIN PO SCH; -HEPARIN SODIUM 1,000 UN/ML (10ML VL) IV ONE; -HEPARIN SODIUM 1,000 UN/ML (10ML VL) ONE; -IOPAMIDOL-370 125ML BTL INJ ONE; -IPRATROPIUM-ALBUTEROL 3 ML NEB INHALATION PRN; -ISOSORBIDE MONONITRATE ER 30 MG TAB.ER.24H PO SCH; +LACTATED RINGERS 1,000 ML IV SCH; +LIDOCAINE 1% 20 ML VIAL (10MG/ML) FOR IV START INTRADERMA PRN; -LIDOCAINE 1% INJ 10MG/ML (20 ML MDV) ONE; -LIDOCAINE 1% INJ 10MG/ML (20 ML MDV) SQ ONE; -LOSARTAN 25 MG TAB PO SCH; -MIDAZOLAM 2 MG/2 ML VIAL IVP ONE; -MONTELUKAST 10 MG TAB PO SCH; -MULTIVITAMIN PO SCH; -NITROGLYCERIN SL TABS 0.4 MG TAB SUBLINGUAL PRN; -NON-FORMULARY DRUG (L.Acidoph,Paracasei, B.Lactis [Probiotic] 1 CAP) PO SCH; -RX INFO: IV CONTRAST WAS GIVEN 1 EACH MISC MISCELLANE PRN; -SODIUM CHLORIDE 0.9% 1,000 ML IV ONE; -SODIUM CHLORIDE 0.9% 1,000 ML IV SCH; -SODIUM CHLORIDE 0.9% 1,000 ML in EMPTY BAG 1 BAG IV ONE; -VERAPAMIL 2.5 MG/ML 2 ML AMP ONE; -VERAPAMIL SYRINGE (5 MG/10 ML) INTRAARTER ONE; -fentaNYL (PF) 50 MCG/ML 2 ML AMP IVP ONE; -fentaNYL (PF) 50 MCG/ML 2 ML AMP ONE; -tiZANidine 4 MG TAB PO PRN
[2019-01-29 11:27] VITALS: RESP 16; TEMP 98.5
[2019-01-29] MEDS ORDERED: PROPOFOL 10 MG/ML 20 ML VIAL IV ONE (11:36)
[2019-01-29] MEDS ORDERED: LIDOCAINE 1% INJ 10MG/ML (20 ML MDV) ONE (11:36)
--- NOTE | 2019-01-29 12:17 | P.PCN ---
Date of Procedure: 01/29/19 Procedure(s) Performed: Procedure: Colonoscopy and biopsy. Preoperative diagnosis: Screening for neoplasia. Postoperative diagnosis: 1. Sigmoid diverticulosis with no evidence of acute diverticulitis, strictures, significant polyps or cancer. 2. Biopsies obtained from the right colon to rule out microscopic colitis. Preparation: HalfLytely prep. Sedation: Was provided by anesthesia. Brief clinical history: The patient is a 69-year-old female who is scheduled for this evaluation for screening for neoplasia. Her last exam was more than 15-20 years ago. The patient reported issues with diarrhea over the years that are worse lately. No bleeding or other alarm symptoms. She had a CT of the abdomen and pelvis in December of this year that showed sigmoid diverticulosis and thickening in the sigmoid raising the possibility of colitis or mucosal pathology. Procedure: With the patient on her left lateral decubitus position and after informed consent and adequate sedation, the perianal area was inspected and it did not show any fissures or fistulas. He were no masses felt on digital rectal examination. The Olympus CFH 190L video colonoscope was then inserted in the rectum in the usual fashion and advanced to the cecum. There was sigmoid diverticulosis noted with no evidence of acute diverticulitis or strictures. The mucosa appeared healthy. No polyps or tumors were seen. I obtained biopsies from the right colon then I retroflexed the endoscope in the rectum before the endoscope was withdrawn. The patient tolerated the procedure well. Plan: The patient was reassured. Discussed dietary measures. She will follow- up with you as planned and I recommended repeat colonoscopy in 10 years.
[2019-01-29 12:28] VITALS: BP 118/65; PULSE 78
== END 2019-01-29 12:49 | disposition home or self-care (01) ==
LOC: ORWHC2ENDO 11:06
DX: R19.7 Diarrhea, unspecified (principal); K57.30 Diverticulosis of large intestine without perforation or abscess without bleeding; I25.118 Atherosclerotic heart disease of native coronary artery with other forms of angina pectoris; I10 Essential (primary) hypertension; E78.5 Hyperlipidemia, unspecified; Z87.891 Personal history of nicotine dependence; Z79.82 Long term (current) use of aspirin; Z79.899 Other long term (current) drug therapy; Z88.5 Allergy status to narcotic agent; Z88.0 Allergy status to penicillin
CPT/HCPCS: 45380; J2001; J2704; 88305

== ENCOUNTER → 2020-01-06 | Outpatient (CLI) | payer MEDICARE ==
--- NOTE | 2020-01-06 14:30 | US ---
EXAMINATION TYPE: US thyroid st tissue head/neck DATE OF EXAM: 01/06/2020 COMPARISON: NONE CLINICAL HISTORY: E21.2 Hyperparathyroidism. Abnormal labs. No thyroid meds. GLAND SIZE: Right Lobe: 3.2 x 1.5 x 1.7 cm Overall Parenchyma: homogenous Left Lobe: 3.2 x 1.7 x 1.6 cm Overall Parenchyma: homogeneous Isthmus Thickness: 0.6 cm NODULES RIGHT: # of nodules measured on right: 0 LEFT: # of nodules measured on left: 0 ISTHMUS: # of nodules measured in the isthmus: 0 Bilateral neck scanned, no evidence of lymphadenopathy. IMPRESSION: Homogeneous thyroid gland with no discrete nodule. Thyroid gland is nonenlarged.
== END | disposition home or self-care (01) ==
LOC: RADUSWWP 13:55
PROVIDERS: ATTEND Family Medicine
DX: E21.2 Other hyperparathyroidism (principal)
CPT/HCPCS: 76536

== ENCOUNTER → 2021-01-04 | Outpatient (CLI) | payer MEDICARE ==
--- NOTE | 2021-01-04 13:13 | XR ---
2 view abdomen HISTORY: Pain and diarrhea 2 views the abdomen submitted. There are air-fluid levels without bowel distention. No pneumoperitoneum. Lung bases are clear. Surgi damien cecilio present in the midline in the upper abdomen. Probable phleboliths present in the right he mipelvis. IMPRESSION: Findings consistent with patient's history of enteritis
== END | disposition home or self-care (01) ==
LOC: RADXRYALE 11:21
PROVIDERS: ATTEND Physician Assistant Medical
DX: R10.9 Unspecified abdominal pain (principal)
CPT/HCPCS: 74019

== ENCOUNTER → 2021-01-25 | Outpatient (CLI) | payer MEDICARE ==
[2021-01-25 10:54] LABS: African American GFR (CKD) >90 (>60 ml/min/1.73 sqM); Blood Urea Nitrogen 8 mg/dL (7-17); Non-African American GFR(CKD) >90 (>60 ml/min/1.73 sqM)
--- NOTE | 2021-01-25 12:29 | CT ---
Right is in EXAMINATION TYPE: CT abdomen pelvis w con DATE OF EXAM: 01/25/2021 COMPARISON: 01/05/2019 HISTORY: Elevated liver enzymes, bladder pressure, Lt flank pain, LLQ pain, bloating, history of dive rticulitis and a plate is in a CT DLP: 1642 mGycm CONTRAST: CT scan of the abdomen and pelvis is performed with Oral Contrast and with IV Contrast, patient injec angela with 100 mL of Isovue 300. FINDINGS: LUNG BASES-: No visible nodule. No infiltrate. LIVER/GB: The gallbladder is surgically absent. No space occupying hepatic lesion. Biliary tree is of normal caliber. PANCREAS: No inflammation. No distinct mass. SPLEEN: No splenic enlargement. No lesion seen. ADRENALS: No nodule. No thickening. KIDNEYS/BLADDER: No hydronephrosis. No nephrolithiasis. No distinct renal mass. Urinary bladder g rossly unremarkable. BOWEL: Normal appendix. Normal bowel caliber. No inflammation. Diverticulosis without evidence for diverticulitis. GENITAL ORGANS: No gross abnormality. LYMPH NODES: No greater than 1cm abdominal or pelvic lymph nodes are appreciated. AORTA: No significant abnormality. OSSEOUS STRUCTURES: No significant abnormality is seen. OTHER: No significant additional abnormality is seen. IMPRESSION: 1. No significant abnormality to account for the patient's symptoms.
== END | disposition home or self-care (01) ==
LOC: RADCTMAIN 10:02
PROVIDERS: ATTEND Family Medicine
DX: R74.8 Abnormal levels of other serum enzymes (principal)
CPT/HCPCS: 82565; 84520; 74177; 36415; Q9967

== ENCOUNTER → 2022-03-06 | Outpatient (CLI) | payer MEDICARE ==
--- NOTE | 2022-03-06 10:08 | XR ---
EXAMINATION TYPE: XR knee complete LT DATE OF EXAM: 03/06/2022 COMPARISON: NONE HISTORY: Pain TECHNIQUE: Three views are submitted. FINDINGS: Mild narrowing of the knee joint. No erosive changes. Osseous structures are intact. No acute fract ure seen. Diffuse osteopenia IMPRESSION: 1. No acute fracture or dislocation. 2. Diffuse osteopenia with arthropathy
== END | disposition home or self-care (01) ==
LOC: RADXRYALE 09:51
PROVIDERS: ATTEND Physician Assistant Medical
DX: M12.862 Other specific arthropathies, not elsewhere classified, left knee (principal); M85.862 Other specified disorders of bone density and structure, left lower leg

== ENCOUNTER → 2022-04-16 | Outpatient (CLI) | payer MEDICARE ==
--- NOTE | 2022-04-16 15:48 | XR ---
Right knee HISTORY: Strain, pain 3 views the right knee, no comparisons Bone mineralization is slightly reduced, joint spaces and alignment are maintained. No fracture or di slocation. There may be minimal suprapatellar joint effusion. IMPRESSION: No acute fracture or dislocation. Knee MRI may be of benefit.
== END | disposition home or self-care (01) ==
LOC: RADXRYALE 14:05
PROVIDERS: ATTEND Physician Assistant Medical
DX: M25.561 Pain in right knee (principal)

== ENCOUNTER → 2022-08-03 | Outpatient (CLI) | payer MEDICARE ==
--- NOTE | 2022-08-03 15:05 | US ---
EXAMINATION TYPE: US venous doppler duplex LE RT DATE OF EXAM: 08/03/2022 2:43 PM COMPARISON: NONE CLINICAL HISTORY: Right leg pain following knee surgery. Right meniscal repair 5 weeks ago. SIDE PERFORMED: Right TECHNIQUE: The lower extremity deep venous system is examined utilizing real time linear array sonog drew with graded compression, doppler sonography and color-flow sonography. VESSELS IMAGED: Common Femoral Vein Deep Femoral Vein Greater Saphenous Vein * Femoral Vein Popliteal Vein Small Saphenous Vein * Proximal Calf Veins (* superficial vessels) Right Leg: Negative for DVT IMPRESSION: 1. Right lower extremity ultrasound negative for deep venous thrombosis.
== END | disposition home or self-care (01) ==
LOC: RADUSWWP 13:54
PROVIDERS: ATTEND Orthopaedic Surgery
DX: I80.9 Phlebitis and thrombophlebitis of unspecified site (principal)

== ENCOUNTER → 2024-04-02 | Outpatient (CLI) | payer MEDICARE ==
--- NOTE | 2024-04-02 11:15 | XR ---
EXAMINATION TYPE: XR shoulder complete RT DATE OF EXAM: 04/02/2024 10:02 AM CLINICAL INDICATION:Female, 74 years old with history of [id number] RT SHLD PAIN; [facility] COMPARISON: None TECHNIQUE: XR shoulder complete RT; examined in AP, internally rotated and scapular Y projections. FINDINGS: No evidence of acute osseous pathology, joint dislocation, or soft tissue swelling. The remaining po rtions of the visualized chest are unremarkable. Mild degeneration changes of the acromion, distal c lavicle with osteophyte formation. There is osteophyte formation of the glenoid and humeral head. The re is joint space narrowing of glenohumeral joint IMPRESSION: 1. No acute osseous pathology. 2. Mild shoulder osteoarthrosis.
== END | disposition home or self-care (01) ==
LOC: RADXRYALE 09:48
PROVIDERS: ATTEND Family Medicine
DX: M19.011 Primary osteoarthritis, right shoulder (principal)

== ENCOUNTER → 2024-07-22 | Outpatient (CLI) | payer MEDICARE ==
--- NOTE | 2024-07-26 11:50 | MM ---
Reason for Exam: Screening (asymptomatic). Last mammogram was performed 7 year(s) and 5 month(s) ago. Patient History: Menarche at age 15. First Full-Term at age 21. Left ovary removed at age 27. Hysterectomy at age 27. Postmenopausal. Excisional Biopsy on the Right side. Risk Values: Faye 5 year model risk: 1.7%. NCI Lifetime model risk: 4.2%. Prior Study Comparison: 08/03/2003 Bilateral Screening Mammogram, [facility]. 02/15/2017 Bilateral Screening Mammogram, [facility]. 08/14/2017 Left Diagnostic Mammogram, [facility]. Tissue Density: The breasts are heterogeneously dense, which may obscure small masses. Findings: Analyzed By CAD. The pattern is symmetrical. Pattern appears stable. No significant interval change. Benign spherical calcifications right breast. No suspicious groups of microcalcifications, spiculated or lobular masses, architectural distortion or other secondary signs of malignancy are mammographically apparent.The pattern is symmetrical. Pattern appears stable. No significant interval change. Benign spherical calcifications right breast. No suspicious groups of microcalcifications, spiculated or lobular masses, architectural distortion or other secondary signs of malignancy are mammographically apparent. Patient complains of a right axillary lump which is pronounced day goes on. Overall Assessment: Benign, BI-RAD 2 Management: Screening Mammogram of both breasts in 1 year. A negative mammogram report should not preclude additional follow up of suspicious palpable abnormalities. Patient should continue monthly self breast exam. A clinical breast exam by your physician is recommended on an annual basis and results should be correlated with mammographic findings. Note on Faye scores and lifetime risk: 1. A Faye score greater than 3% is considered moderate risk. If this is the case, consider specialist referral to assess eligibility for a risk reducing agent. 2. If overall lifetime risk for the development of breast cancer is 20% or higher, the patient may qualify for future screening with alternating mammogram and breast MRI. [facility], , 07/26/2024 11:47 AM. Electronically signed and approved by: Mike Redmond D.O. Radiologis
== END | disposition home or self-care (01) ==
LOC: RADMAMWWP 10:55
PROVIDERS: ATTEND Family Medicine
DX: Z12.31 Encounter for screening mammogram for malignant neoplasm of breast
CPT/HCPCS: 77063; 77067